=== PATIENT | female | born 1975 | race Native Hawaiian/Other Pacific Islander ===

== ENCOUNTER 2016-05-13 13:42 | Outpatient (CLI) | payer OTHER | END 2016-05-13 20:14 | disposition home or self-care (01) | LOC: RAD 13:42 | DX: R07.89 Other chest pain (principal) ==

== ENCOUNTER 2016-05-13 18:04 | Outpatient (CLI) | payer OTHER | END 2016-05-13 20:13 | disposition home or self-care (01) | LOC: LAB 18:04 | DX: R07.89 Other chest pain (principal) | CPT/HCPCS: 82550; 84484 ==

== ENCOUNTER 2016-09-25 17:39 | Outpatient (CLI) | payer OTHER | END 2016-09-25 18:40 | disposition home or self-care (01) | LOC: RAD 17:39 | DX: M77.31 Calcaneal spur, right foot (principal) ==

== ENCOUNTER 2016-11-25 08:30 | Outpatient (CLI) | payer OTHER | END 2016-11-25 19:30 | disposition home or self-care (01) | LOC: US 08:30 | DX: R94.5 Abnormal results of liver function studies (principal) ==

== ENCOUNTER 2017-01-20 12:04 | Observation (INO) | payer OTHER ==
[~2017-01-20] VITALS: Ht 167.6 cm; Wt 107.6 kg
[2017-01-20 14:13] LABS: PLATELET COUNT 275 K/uL (152-353)
[2017-01-20 15:05] LABS: POTASSIUM 3.9 mmol/L (3.6-5.2); SODIUM 138 mmol/L (136-145)
[2017-01-20 17:39] VITALS: BP 149/61; TEMP 98.6; Ht 167.6 cm; Wt 107.6 kg
[2017-01-20 20:00] VITALS: BP 110/58; TEMP 98
[2017-01-21] VITALS: BP 100/60; TEMP 98.3
[2017-01-21 04:00] VITALS: BP 115/68; TEMP 98
[2017-01-21 08:00] VITALS: BP 124/68; TEMP 98.2
[2017-01-21 12:00] VITALS: BP 169/79; TEMP 98
[2017-01-21 16:00] VITALS: BP 139/69; TEMP 98
[2017-01-21 20:00] VITALS: BP 130/61; TEMP 97.8
[2017-01-22] VITALS: BP 115/62; TEMP 97.6
[2017-01-22 04:00] VITALS: BP 117/71; TEMP 97.5
[2017-01-22 06:37] LABS: PLATELET COUNT 206 K/uL (152-353)
[2017-01-22 08:00] VITALS: BP 151/84; TEMP 98.6
[2017-01-22 09:03] LABS: POTASSIUM 4.2 mmol/L (3.6-5.2)
[2017-01-22 12:00] VITALS: BP 137/72; TEMP 98.4
== END 2017-01-22 15:50 | disposition home or self-care (01) ==
LOC: MED/SURG 12:04
PROVIDERS: ADMIT Family Medicine
DX: N30.01 Acute cystitis with hematuria (principal); R55 Syncope and collapse; R42 Dizziness and giddiness; H60.391 Other infective otitis externa, right ear; B96.1 Klebsiella pneumoniae [K. pneumoniae] as the cause of diseases classified elsewhere
CPT/HCPCS: 36415; 80053; 81000; 83735; 85027; 87040; 87070; 87077; 87086; 87088; 87101; 87186; 87205; 96365; 96366; 96367; 99220; G0378; G0379; J1885; J1956

== ENCOUNTER 2017-05-20 07:22 | Outpatient (CLI) | payer OTHER | END 2017-05-20 07:34 | disposition short-term general hospital (02) | LOC: AMB 07:22 | DX: R20.2 Paresthesia of skin (principal); R53.1 Weakness; M54.89 Other dorsalgia | CPT/HCPCS: A0425; A0429 ==

== ENCOUNTER 2017-05-20 07:42 | Emergency (ER) | payer OTHER ==
[~2017-05-20] VITALS: Ht 167.6 cm; Wt 104.3 kg
[2017-05-20 07:35] VITALS: TEMP 97.6
[2017-05-20 07:56] LABS: PLATELET COUNT 319 K/uL (152-353)
[2017-05-20 10:00] VITALS: BP 120/69
== END 2017-05-20 10:43 | disposition short-term general hospital (02) ==
LOC: ED 07:42
DX: G82.20 Paraplegia, unspecified (principal); M51.87 Other intervertebral disc disorders, lumbosacral region; M51.27 Other intervertebral disc displacement, lumbosacral region; M51.37 Other intervertebral disc degeneration, lumbosacral region
CPT/HCPCS: 85027; 99283

== ENCOUNTER 2017-05-20 11:55 | Outpatient (CLI) | payer OTHER | END 2017-05-20 15:44 | disposition short-term general hospital (02) | LOC: AMB 11:55 | DX: G82.20 Paraplegia, unspecified (principal); M51.87 Other intervertebral disc disorders, lumbosacral region; M51.27 Other intervertebral disc displacement, lumbosacral region; M51.37 Other intervertebral disc degeneration, lumbosacral region | CPT/HCPCS: A0425; A0427 ==

== ENCOUNTER 2017-10-01 10:33 | Emergency (ER) | payer OTHER ==
[~2017-10-01] VITALS: Ht 167.6 cm; Wt 99.8 kg
[2017-10-01 10:38] VITALS: TEMP 98.5
[2017-10-01 11:29] LABS: PLATELET COUNT 220 K/uL (152-353)
[2017-10-01 12:13] LABS: POTASSIUM 3.9 mmol/L (3.6-5.2)
[2017-10-01 18:00] VITALS: BP 128/78
== END 2017-10-01 18:16 | disposition home or self-care (01) ==
LOC: ED 10:33
PROVIDERS: Emergency Medicine
DX: R07.89 Other chest pain (principal)
CPT/HCPCS: 36415; 80053; 82550; 82553; 84484; 85027; 85379; 93005; 99284

== ENCOUNTER 2017-11-01 09:36 | Outpatient (CLI) | payer OTHER ==
[2017-11-01 09:49] LABS: PLATELET COUNT 235 K/uL (152-353)
[2017-11-01 10:03] LABS: POTASSIUM 4.2 mmol/L (3.6-5.2)
== END 2017-11-01 20:18 | disposition home or self-care (01) ==
LOC: LABW 09:36
PROVIDERS: Nurse Practitioner Family
DX: E86.0 Dehydration (principal)
CPT/HCPCS: 36415; 80053; 85027

== ENCOUNTER 2018-03-12 12:25 | Outpatient (CLI) | payer OTHER | END 2018-03-12 23:43 | disposition home or self-care (01) | LOC: RAD 12:25 | DX: M79.672 Pain in left foot (principal); M79.671 Pain in right foot ==

== ENCOUNTER 2018-05-12 13:53 | Outpatient (CLI) | payer OTHER ==
[2018-05-12 14:11] LABS: POTASSIUM 3.1 mmol/L (3.6-5.2)
== END 2018-05-12 20:32 | disposition home or self-care (01) ==
LOC: LAB 13:53
PROVIDERS: Nurse Practitioner Family
DX: E86.0 Dehydration (principal)
CPT/HCPCS: 80053

== ENCOUNTER 2018-05-13 07:53 | Outpatient (CLI) | payer OTHER ==
[~2018-05-13] VITALS: Ht 167.6 cm; Wt 98.4 kg
[2018-05-13 07:58] VITALS: BP 133/76; TEMP 97.8
[2018-05-13 13:46] VITALS: BP 139/77; TEMP 97.9
== END 2018-05-13 13:52 | disposition home or self-care (01) ==
LOC: INF 07:53
DX: E86.0 Dehydration (principal)
CPT/HCPCS: 96360; 96361

== ENCOUNTER 2018-09-03 07:37 | Emergency (ER) | payer OTHER ==
[~2018-09-03] VITALS: Ht 167.6 cm; Wt 98.4 kg
[2018-09-03 07:48] VITALS: TEMP 98.6
[2018-09-03 07:59] LABS: PLATELET COUNT 228 K/uL (152-353)
[2018-09-03 08:07] LABS: POTASSIUM 3.7 mmol/L (3.6-5.2); SODIUM 143 mmol/L (136-145)
[2018-09-03 16:00] VITALS: BP 124/61
== END 2018-09-03 16:38 | disposition other institution (70) ==
LOC: ED 07:37
PROVIDERS: Emergency Medicine
DX: R07.89 Other chest pain (principal); R45.851 Suicidal ideations
CPT/HCPCS: 80053; 80307; 80329; 81000; 82550; 82553; 84484; 85027; 87077; 87086; 87088; 87186; 93005; 99285

== ENCOUNTER 2019-02-16 08:04 | Outpatient (CLI) | payer OTHER | END 2019-02-16 19:32 | disposition home or self-care (01) | LOC: CT 08:04 | DX: R10.31 Right lower quadrant pain (principal); R68.89 Other general symptoms and signs | CPT/HCPCS: Q9963 ==

== ENCOUNTER 2019-09-15 10:13 | Outpatient (CLI) | payer OTHER ==
[~2019-09-15] VITALS: Ht 167.6 cm; Wt 81.6 kg
[2019-09-15 11:40] VITALS: BP 122/70; TEMP 97.6
== END 2019-09-15 19:17 | disposition home or self-care (01) ==
LOC: INF 10:13
DX: E86.0 Dehydration (principal)
CPT/HCPCS: 96360

== ENCOUNTER 2020-03-13 09:07 | Outpatient (CLI) | payer OTHER | END 2020-03-13 19:36 | disposition home or self-care (01) | LOC: RAD 09:07 | PROVIDERS: ATTEND Nurse Practitioner Family | DX: S16.1XXA Strain of muscle, fascia and tendon at neck level, initial encounter (principal); Z79.899 Other long term (current) drug therapy; M54.9 Dorsalgia, unspecified; M54.16 Radiculopathy, lumbar region ==

== ENCOUNTER 2020-04-11 10:19 | Outpatient (CLI) | payer OTHER | END 2020-04-11 22:08 | disposition home or self-care (01) | LOC: RAD 10:19 | PROVIDERS: ATTEND Nurse Practitioner Family | DX: R22.41 Localized swelling, mass and lump, right lower limb (principal); M25.561 Pain in right knee ==

== ENCOUNTER 2020-10-02 17:02 | Outpatient (CLI) | payer OTHER | END 2020-10-02 23:59 | disposition home or self-care (01) | LOC: RAD 17:02 | PROVIDERS: ATTEND Nurse Practitioner Family | DX: M72.2 Plantar fascial fibromatosis (principal) ==

== ENCOUNTER 2020-10-03 13:19 | Outpatient (CLI) | payer OTHER ==
[2020-10-10 16:03] LABS: POTASSIUM 4.3 mmol/L (3.6-5.2)
[2020-10-11 14:17] LABS: PLATELET COUNT 246 K/uL (152-353)
== END 2020-10-03 17:00 | disposition home or self-care (01) ==
LOC: LAB 13:19
PROVIDERS: ATTEND Nurse Practitioner Family
DX: R10.13 Epigastric pain (principal)
CPT/HCPCS: 36415; 80053; 82150; 83690; 85027

== ENCOUNTER 2020-12-14 09:00 | Outpatient (CLI) | payer OTHER | END 2020-12-14 19:08 | disposition home or self-care (01) | LOC: CT 09:00 | PROVIDERS: ATTEND Nurse Practitioner Family | DX: R10.31 Right lower quadrant pain (principal) | CPT/HCPCS: Q9963 ==

== ENCOUNTER 2021-01-02 11:20 | Emergency (ER) | payer OTHER ==
[~2021-01-02] VITALS: Ht 167.6 cm; Wt 102.5 kg
[2021-01-02 12:19] LABS: PLATELET COUNT 264 K/uL (152-353)
[2021-01-02 12:26] LABS: POTASSIUM 4.2 mmol/L (3.6-5.2)
[2021-01-02 16:20] VITALS: BP 106/59; TEMP 98.1
== END 2021-01-02 16:20 | disposition home or self-care (01) ==
LOC: ED 11:20
PROVIDERS: Emergency Medicine Emergency Medical Services
DX: R11.2 Nausea with vomiting, unspecified (principal); R10.31 Right lower quadrant pain
CPT/HCPCS: 36415; 80053; 81000; 83690; 85027; 96374; 96375; 99284; J2270; J2405; Q9963

== ENCOUNTER 2021-02-05 08:24 | Outpatient (CLI) | payer OTHER | END 2021-02-05 19:20 | disposition home or self-care (01) | LOC: NM 08:24 | PROVIDERS: ATTEND Internal Medicine | DX: R10.9 Unspecified abdominal pain (principal) | CPT/HCPCS: A9541 ==

== ENCOUNTER 2021-02-22 11:05 | Emergency (ER) | payer OTHER ==
[~2021-02-22] VITALS: Ht 167.6 cm; Wt 102.5 kg
[2021-02-22 11:45] LABS: PLATELET COUNT 249 K/uL (152-353)
[2021-02-22 11:48] LABS: POTASSIUM 3.9 mmol/L (3.6-5.2); SODIUM 139 mmol/L (136-145)
[2021-02-22 13:00] VITALS: BP 117/76; TEMP 98
== END 2021-02-22 13:00 | disposition home or self-care (01) ==
LOC: ED 11:05
PROVIDERS: Emergency Medicine
DX: R07.89 Other chest pain (principal); F41.8 Other specified anxiety disorders; F43.9 Reaction to severe stress, unspecified
CPT/HCPCS: 80048; 84484; 85027; 93005; 99283

== ENCOUNTER 2021-06-12 09:01 | Outpatient (CLI) | payer OTHER | END 2021-06-12 18:55 | disposition home or self-care (01) | LOC: US 09:01 | PROVIDERS: ATTEND Nurse Practitioner Family | DX: R94.6 Abnormal results of thyroid function studies (principal) ==

== ENCOUNTER 2021-07-02 12:04 | Outpatient (CLI) | payer OTHER | END 2021-07-02 18:59 | disposition home or self-care (01) | LOC: CT 12:04 | PROVIDERS: ATTEND Nurse Practitioner Family | DX: L02.211 Cutaneous abscess of abdominal wall (principal) | CPT/HCPCS: Q9963 ==

== ENCOUNTER 2021-07-04 09:11 | Outpatient (CLI) | payer OTHER | END 2021-07-04 18:57 | disposition home or self-care (01) | LOC: NM 09:11 | PROVIDERS: ATTEND Nurse Practitioner Family | DX: R93.89 Abnormal findings on diagnostic imaging of other specified body structures (principal) | CPT/HCPCS: A9516 ==

== ENCOUNTER 2021-07-24 16:17 | Emergency (ER) | payer OTHER ==
[~2021-07-24] VITALS: Ht 167.6 cm; Wt 102.5 kg
[2021-07-24 17:10] LABS: PLATELET COUNT 260 K/uL (152-353)
[2021-07-24 17:14] LABS: POTASSIUM 3.8 mmol/L (3.6-5.2)
[2021-07-24 19:15] VITALS: BP 136/78; TEMP 97.8
== END 2021-07-24 19:15 | disposition home or self-care (01) ==
LOC: ED 16:17
PROVIDERS: Emergency Medicine
DX: R20.2 Paresthesia of skin (principal); R79.89 Other specified abnormal findings of blood chemistry; Z98.890 Other specified postprocedural states
CPT/HCPCS: 80048; 84550; 85027; 85379; 99283; Q9963

== ENCOUNTER 2021-07-25 10:19 | Outpatient (CLI) | payer OTHER | END 2021-07-25 19:16 | disposition home or self-care (01) | LOC: US 10:19 | PROVIDERS: ATTEND Nurse Practitioner Family | DX: R79.1 Abnormal coagulation profile (principal) ==

== ENCOUNTER 2022-04-11 12:11 | Outpatient (CLI) | payer OTHER | END 2022-04-11 21:43 | disposition home or self-care (01) | LOC: US 12:11 | PROVIDERS: ATTEND Nurse Practitioner Family | DX: R60.0 Localized edema (principal) ==

== ENCOUNTER 2022-04-11 20:09 | Emergency (ER) | payer OTHER ==
[~2022-04-11] VITALS: Ht 167.6 cm; Wt 104.3 kg
[2022-04-11 20:26] LABS: PLATELET COUNT 274 K/uL (152-353)
[2022-04-11 20:40] LABS: POTASSIUM 3.6 mmol/L (3.6-5.2)
[2022-04-11 20:59] LABS: PARTIAL THROMBOPLASTIN TIME 26.1 SECONDS (24.5-33.6)
[2022-04-11 21:47] VITALS: BP 154/85; TEMP 98.3
== END 2022-04-11 21:45 | disposition home or self-care (01) ==
LOC: ED 20:09
PROVIDERS: Emergency Medicine
DX: R10.12 Left upper quadrant pain (principal); R10.11 Right upper quadrant pain; R94.5 Abnormal results of liver function studies
CPT/HCPCS: 80053; 82550; 84484; 85027; 85610; 85730; 93005; 99284

== ENCOUNTER 2022-05-26 11:54 | Outpatient (CLI) | payer OTHER ==
[2022-05-26 12:20] LABS: PLATELET COUNT 206 K/uL (152-353)
[2022-05-26 12:39] LABS: POTASSIUM 4.5 mmol/L (3.6-5.2)
== END 2022-05-26 18:59 | disposition home or self-care (01) ==
LOC: LAB 11:54
PROVIDERS: ATTEND Family Medicine
DX: M54.89 Other dorsalgia (principal)
CPT/HCPCS: 36415; 80053; 80061; 84443; 85027

== ENCOUNTER 2022-06-06 08:43 | Outpatient (CLI) | payer OTHER | END 2022-06-06 19:17 | disposition home or self-care (01) | LOC: CT 08:43 | PROVIDERS: ATTEND Nurse Practitioner Family | DX: R51.9 Headache, unspecified (principal) ==

== ENCOUNTER 2022-11-18 10:01 | Outpatient (CLI) | payer OTHER ==
[2022-11-18 10:50] LABS: PLATELET COUNT 202 K/uL (152-353)
[2022-11-18 11:06] LABS: POTASSIUM 3.5 mmol/L (3.6-5.2)
== END 2022-11-18 21:20 | disposition home or self-care (01) ==
LOC: LABW 10:01
PROVIDERS: ATTEND Family Medicine
DX: K75.81 Nonalcoholic steatohepatitis (NASH) (principal); R74.01 Elevation of levels of liver transaminase levels
CPT/HCPCS: 36415; 80053; 80074; 82390; 82728; 85027